=== PATIENT | female | born 1975 | race Caucasian/White ===

== ENCOUNTER 2016-09-07 04:11 | Emergency (ER) | payer MEDICARE, MEDICAID ==
[~2016-09-07 04:11] MED LIST: CEPH500C PO; HYDR-4003 PO
[2016-09-07] MEDS ORDERED: 0.9% Sodium Chloride 1,000 ML IV ONE (04:18)
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
[2016-09-07] MEDS ORDERED: HYDROmorphone 0.5 mg/0.5 mL iSecure Syringe IVPUSH PRN (04:20)
[2016-09-07] MEDS ORDERED: Ondansetron 2 mg/mL 2 mL Inj IVPUSH PRN (04:20)
[2016-09-07 04:31] LABS: BASOPHILS % (AUTO) 0.5 % (0-3); EOSINOPHILS % (AUTO) 5.4 % (0-5); MONOCYTES % (AUTO) 5.9 % (4-12); Mean Corpuscular Hemoglobin 30.4 pg (27.0-35.0); Mean Corpuscular Volume 90.7 fL (81-100); NEUTROPHILS % (AUTO) 68.9 % (40-74); Platelet Count 249 bil/L (150-400)
[2016-09-07 04:52] LABS: INR 0.96 ratio
[2016-09-07 06:51] VITALS: BP 117/74; PULSE 89; RESP 16; O2SAT 100
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
== END 2016-09-07 06:32 | disposition home or self-care (01) ==
LOC: SED 04:11
DX: S81.812A Laceration without foreign body, left lower leg, initial encounter (principal); S40.022A Contusion of left upper arm, initial encounter; S00.90XA Unspecified superficial injury of unspecified part of head, initial encounter; V48.6XXA Car passenger injured in noncollision transport accident in traffic accident, initial encounter; W22.19XA Striking against or struck by other automobile airbag, initial encounter; Y92.410 Unspecified street and highway as the place of occurrence of the external cause; Y93.89 Activity, other specified; Y99.8 Other external cause status; F17.200 Nicotine dependence, unspecified, uncomplicated; Z88.0 Allergy status to penicillin
CPT/HCPCS: 12002; 70450; 71010; 71260; 72125; 72170; 73090; 73560; 73590; 74177; 80053; 83690; 83735; 85014; 85018; 85025; 85610; 85730; 93005; 96360; 99285; G0390; J7030; Q9967